=== PATIENT | male | born 1990 | race Caucasian/White ===

== ENCOUNTER 2022-02-22 11:45 | Emergency (ER) | payer SELFPAY ==
[2022-02-22 12:00] VITALS: BP 109/70; PULSE 100; RESP 18; TEMP 37.1; O2SAT 95; BMI 22.8
--- NOTE | 2022-02-22 12:41 | ED_ITS ---
HPI - Allergic Reaction General: Chief complaint: Allergic Reaction Stated complaint: ANXIETY ATTACH Time Seen by Provider: 02/22/22 12:41 History of Present Illness: HPI narrative: pt was outside burning trash and developed rash on hands, lip swelling, and ho arseness Known history of allergy to: unknown outside Review of Systems General: Reports: 10 or more systems reviewed and unremarkable except in HPI and below ENMT: Reports: swelling of lips/tongue Resp: Reports: dyspnea, wheezing and pain on inspiration Skin/Breast: Reports: rash, pruritus, erythema and skin tenderness Physical Exam Const: COMMON NORMALS: no acute distress, patient oriented x3, no limitations and alert GENERAL APPEARANCE: cooperative and comfortable ORIENTATION/CONSCIOUSNESS: Yes awake, Yes oriented to person, Yes oriented to place and Yes oriented to time HENMT: COMMON NORMALS: normocephalic, atraumatic, external ears normal, EAC's normal, TM's normal bilaterally and Normal external nose present HEAD & SCALP: normal to inspection, normocephalic and atraumatic FACE & SINUS: normal facial exam, sinuses nontender and face symmetric NOSE: Normal external nose present, Normal nares present and No nasal discharge present EXTERNAL EAR: Yes external ears normal EXTERNAL AUDITORY CANAL: EAC's normal TYMPANIC MEMBRANE: TM's normal bilaterally MOUTH: Normal oral and palatal mucosa present, lip normal and tongue normal THROAT: posterior oropharynx normal, tonsils normal and uvula midline Eye: COMMON NORMALS: Equal, round and reactive pupils present, EOMs intact bilaterally and conjunctivae normal GENERAL EYE: appearance normal, both eyes and all related structures and normal light reflex EYELID: eyelids normal CONJUNCTIVA: Yes conjunctivae normal PUPIL: Yes Equal, round and reactive pupils present EOM: Yes EOM abnormal DIRECT OPHTHALMOSCOPY: Yes normal light reflex Neck/C-Spine: COMMON NORMALS: full ROM, no lymphadenopathy, supple, no meningeal signs and no JVD GENERAL: Yes normal visual inspection THYROID: diffusely enlarged and solitary palpable nodule on the right CERVICAL SPINE: Yes cervical ROM normal and Yes normal cervical lordosis Lymph: LYMPHATIC: no lymphadenopathy noted Chest: COMMONS NORMALS: normal inspection of the chest and normal palpation of entire chest wall Resp: COMMON NORMALS: normal respiratory effort, No retractions and clear to auscultation bilaterally AUSCULTATION: clear to auscultation bilaterally Cardio: COMMON NORMALS: no JVD, regular rate, regular rhythm, S1 normal heart sound present, S2 normal heart sound present, No gallops present (Cardio), No clicks present (Cardio), No murmurs present (Cardio), No rub (Cardio) and Peripheral pulses 2+ throughout RATE: regular rate RHYTHM: regular rhythm HEART SOUNDS: S1 normal heart sound present and S2 normal heart sound present PERIPHERAL PULSES: Peripheral pulses 2+ throughout GI: COMMON NORMALS: Normal to inspection, nondistended, normoactive bowel sounds present, Soft to palpation, non-tender and no masses PALPATION: Yes Soft to palpation : COMMON NORMALS: Yes no CVA tenderness BLADDER/KIDNEY EXAM: Yes no CVA tenderness Back/Pelvis: COMMON NORMALS: no CVA tenderness, thoracic and lumbar spine normal to inspection, no thoracic nor lumbar tenderness and thoraco-lumbar ROM normal Extremity: COMMON NORMALS: normal to inspection, full ROM, capillary refill normal, no joint enlargement, no clubbing, cyanosis or edema, no calf tenderness and no pedal edema GENERAL: Yes normal exam except as noted Neuro: COMMON NORMALS: patient oriented x3, moves all extremities, no focal motor deficits, no sensory deficits noted and gait normal SENSORIUM/ORIENTATI ON: Yes alert, Yes oriented to person, Yes oriented to place and Yes oriented to time MENINGEAL SIGNS: Yes no meningeal signs Psych: COMMON NORMALS: mental status grossly normal, Normal thought process present, cooperative, normal affect, speech normal and activity/motor behavior normal SPEECH: Yes normal speech THOUGHT PROCESS: Normal thought process present Skin: RASHES: rashes noted (urticaria and petechia on hands) Course ED course: Pt has IV established in case of angioedema but no swelling of mouth or tongue noted upon assessment. He has reactions that included urticaria upon going outside and increasing over the past 2 years. Upon physical examination a palpable nodule is noted on the right side of his thyroid, it is painless and movable but requires further work up. Pt will need to follow up wit h PCP; pt will be likely DC'd after we note no acuity in his concerns. Vital Signs: Vital signs: Vital Signs Temperature 98.7 F 02/22/22 12:00 Pulse Rate 89 02/22/22 14:23 Respiratory Rate 16 02/22/22 14:22 Blood Pressure 109/70 02/22/22 12:00 Pulse Oximetry 98 02/22/22 14:22 MDM - Allergic Reaction Medical Decision Making Pt labs are not alarming today. He does have a mild increase to his WBC but that is likely due to the reaction itself. He needs to follow up with PCP for further work up and to evaluate his thyroid further due the the nodule finding. Lab Data : 02/22/22 13:53 02/22/22 13:53 Radiology Impressions Chest X-Ray 02/22/22 13:34 IMPRESSION: No acute findings. Laboratory Results WBC 15.5 10^3/uL (4.0-10.0) H 02/22/22 13:53 RBC 5.42 10^6/uL (4.1-5.3) H 02/22/22 13:53 Hgb 16.3 g/dL (11.7-16.6) 02/22/22 13:53 Hct 47.6 % (42.0-52.0) 02/22/22 13:53 MCV 87.8 fl (80-94) 02/22/22 13:53 MCH 30.1 pg (28.0-34.0) 02/22/22 13:53 MCHC 34.2 g/dL (30.0-36.0) 02/22/22 13:53 RDW 11.8 % (12.1-15.1) L 02/22/22 13:53 Plt Count 299 10^3/cmm (130-400) 02/22/22 13:53 MPV 12.0 fL (7.4-10.4) H 02/22/22 13:53 Neut % (Auto) 77.8 % 02/22/22 13:53 Lymph % (Auto) 13.1 % 02/22/22 13:53 Snyder % (Auto) 7.6 % 02/22/22 13:53 Eos % (Auto) 0.9 % 02/22/22 13:53 Baso % (Auto) 0.3 % 02/22/22 13:53 Neut # (Auto) 12.06 10^3/uL (1.8-7.7) H 02/22/22 13:53 Lymph # (Auto) 2.0 10^3/uL (0.8-4.8) 02/22/22 13:53 Snyder # (Auto) 1.2 10^3/uL (0.2-0.9) H 02/22/22 13:53 Eos # (Auto) 0.1 10^3/uL (0.0-0.8) 02/22/22 13:53 Baso # (Auto) 0.1 10^3/uL (0.0-0.1) 02/22/22 13:53 Nucleated RBC % (auto) 0 % 02/22/22 13:53 Nucleated RBCs # 0.0 /100WBC 02/22/22 13:53 ESR 2 mm/hr (0-10) 02/22/22 13:53 Sodium 135 mmol/L (136-145) L 02/22/22 13:53 Potassium 4.1 mmol/L (3.5-5.1) 02/22/22 13:53 Chloride 102 mmol/L (98-107) 02/22/22 13:53 Carbon Dioxide 23 mmol/L (22-29) 02/22/22 13:53 Anion Gap 14.1 (5-19) 02/22/22 13:53 BUN 10 mg/dL (6-20) 02/22/22 13:53 Creatinine 1.0 mg/dL (0.7-1.2) 02/22/22 13:53 GFR Calculation 87.2 mL/min (90-130) L 02/22/22 13:53 Glucose 96 mg/dL (65-115) 02/22/22 13:53 Calculated Osmolality 279 mOsm/kg (285-295) L 02/22/22 13:53 Calcium 9.5 mg/dL (8.5-10.5) 02/22/22 13:53 Total Bilirubin 0.5 mg/dL (0.15-1.2) 02/22/22 13:53 AST 14 U/L (0-40) 02/22/22 13:53 ALT 10 U/L (0-41) 02/22/22 13:53 Alkaline Phosphatase 108 IU/L (40-130) 02/22/22 13:53 Total Protein 7.5 g/dL (6.6-8.7) 02/22/22 13:53 Albumin 4.5 g/dL (3.5-5.2) 02/22/22 13:53 Globulin 3.0 g/dL (1.3-4.6) 02/22/22 13:53 TSH 1.53 uIU/mL (0.27-4.20) 02/22/22 13:53 Imaging Data CXR: Radiologist's impression: [address] [address] XRay Report Signed Patient: Tay Steele Unit #: [id number] : 1990 Age/Sex: 31 / M ADM Date: 02/22/22 Loc: ER Room/Bed: Attending Dr: Ordering Provider/Ordering MD: Lillie Celestin NP Date of Service: 02/22/22 Procedure(s): XR chest 1V portable [id number] Accession Number(s): [id number] Report Number: [id number] PROCEDURE INFORMATION: Exam: XR Chest Exam date and time: 02/22/2022 1:56 PM Age: 31 years old Clinical indication: Pain; Shortness of breath; Angina pectoris; Additional info: Cp/sob TECHNIQUE: Imaging protocol: XR of the chest. Views: 1 view. COMPARISON: No relevant prior studies available. FINDINGS: Lungs: Unremarkable. No consolidation. Pleural spaces: Unremarkable. No pleural effusion. No pneumothorax. Heart/Mediastinum: Unremarkable. No cardiomegaly. Bones/joints: Unremarkable. XR/XR chest 1V portable [id number] IMPRESSION: No acute findings. Dictated By: Kieran Moody DO Signed By: Kieran Moody DO Signed Date/Time: 02/22/22 1409 DD/ 1356 Discharge Plan Discharge Patient Disposition: Home Clinical Impression: Allergic reaction, Urticaria Condition: Stable Prescriptions: New methylprednisolone [Medrol (Braydon)] 4 mg tablets,dose pack See Rx Instructions .ROUTE .COMPLEX Qty: 21 0RF Rx Instructions: orally per package directions Discharge Orders: Discharge ED (Routine); Ordered 02/22/22 Ordered By: Lillie Celestin Discharge Diet: Usual diet Discharge Activity: Resume usual activity Patient Instructions: Opioid Safety Activity Restrictions/Additional Instructions: It is important to ensure your WBC is trending down, follow up with a pcp is necessary. You have a nodule on the parathyroid gland that also needs further investigation. Vit D 25,000 IUI x 2 weeks, decrease to maintenance of 5000 iui daily Zinc 50mg daily x 30 days Vit A +/ good multi vitamin daily Super Quercetin with Bromelain and Vit C Increase green tea to help expedite removal of free radicals/inflammation Coding Level of Care Code ED Motorcyles Final Inspector for Fish Fwd Exam Comprehensive
--- NOTE | 2022-02-22 13:34 | XRR_ITS ---
PROCEDURE INFORMATION: Exam: XR Chest Exam date and time: 02/22/2022 1:56 PM Age: 31 years old Clinical indication: Pain; Shortness of breath; Angina pectoris; Additional info: Cp/sob TECHNIQUE: Imaging protocol: XR of the chest. Views: 1 view. COMPARISON: No relevant prior studies available. FINDINGS: Lungs: Unremarkable. No consolidation. Pleural spaces: Unremarkable. No pleural effusion. No pneumothorax. Heart/Mediastinum: Unremarkable. No cardiomegaly. Bones/joints: Unremarkable. XR/XR chest 1V portable [id number] IMPRESSION: No acute findings.
[2022-02-22 14:05] LABS: Basophils # 0.1 10^3/uL (0.0-0.1); Basophils % 0.3 %; Eosinophils # 0.1 10^3/uL (0.0-0.8); Eosinophils % 0.9 %; Hematocrit 47.6 % (42.0-52.0); Hemoglobin 16.3 g/dL (11.7-16.6); Lymphocytes % 13.1 %; Mean Corpuscular HGB Conc 34.2 g/dL (30.0-36.0); Mean Corpuscular Hemoglobin 30.1 pg (28.0-34.0); Mean Corpuscular Volume 87.8 fl (80-94); Monocytes # 1.2 10^3/uL (0.2-0.9); Monocytes % 7.6 %; Neutrophils # 12.06 10^3/uL (1.8-7.7); Neutrophils % 77.8 %; Nucleated Red Blood Cells % 0 %; Platelet Count 299 10^3/cmm (130-400); Red Blood Count 5.42 10^6/uL (4.1-5.3); Red Cell Distribution Width 11.8 % (12.1-15.1); White Blood Count 15.5 10^3/uL (4.0-10.0)
[2022-02-22 14:18] LABS: Erythrocyte Sedimentation Rate 2 mm/hr (0-10)
[2022-02-22] MEDS: ipratropium-albuterol 3 mL Neb INHALATION (14:19)
[2022-02-22 14:22] VITALS: PULSE 88; RESP 16; O2SAT 98
[2022-02-22 14:23] VITALS: PULSE 89
[2022-02-22 14:41] LABS: Alanine Aminotransferase 10 U/L (0-41); Albumin Level 4.5 g/dL (3.5-5.2); Alkaline Phosphatase 108 IU/L (40-130); Anion Gap 14.1 (5-19); Aspartate Amino Transferase 14 U/L (0-40); Blood Urea Nitrogen 10 mg/dL (6-20); Calcium 9.5 mg/dL (8.5-10.5); Carbon Dioxide 23 mmol/L (22-29); Chloride 102 mmol/L (98-107); Creatinine Clr Calc Pharmacy 103.3314; Glomerular Filtration Rate 87.2 mL/min (90-130); Glucose 96 mg/dL (65-115); Osmolality Calculated 279 mOsm/kg (285-295); Potassium 4.1 mmol/L (3.5-5.1); Sodium 135 mmol/L (136-145); Thyroid Stimulating Hormone 1.53 uIU/mL (0.27-4.20); Total Bilirubin 0.5 mg/dL (0.15-1.2); Total Protein 7.5 g/dL (6.6-8.7)
[2022-02-23 08:57] LABS: T4 Total 7.7 mcg/dL (4.9-10.5)
[2022-02-26 19:52] LABS: TSH Receptor Binding Antibody 1.34 IU/L (< OR = 2.00)
== END 2022-02-22 15:41 | disposition home or self-care (01) ==
PROVIDERS: Emergency Provider Nurse Practitioner Family
DX: T78.40XA Allergy, unspecified, initial encounter (principal); X58.XXXA Exposure to other specified factors, initial encounter; L50.0 Allergic urticaria
CPT/HCPCS: 71045; 80053; 83516; 84436; 84443; 85025; 85651; 94640; 99283

== ENCOUNTER → 2023-01-30 09:00 | Outpatient (BNVA) | payer BC, SELFPAY | PROVIDERS: PCP Nurse Practitioner; Visit Provider Nurse Practitioner | DX: E55.9 Vitamin D deficiency, unspecified (principal); R00.2 Palpitations; F41.1 Generalized anxiety disorder; F41.0 Panic disorder [episodic paroxysmal anxiety]; J45.909 Unspecified asthma, uncomplicated; L03.90 Cellulitis, unspecified | CPT/HCPCS: 80053; 80061; 82306; 85025 ==

== ENCOUNTER → 2023-07-19 15:32 | Outpatient (BNVA) | payer BC, SELFPAY | PROVIDERS: PCP Nurse Practitioner; Visit Provider Nurse Practitioner | DX: E55.9 Vitamin D deficiency, unspecified (principal) | CPT/HCPCS: 80053; 82306 ==

== ENCOUNTER → 2025-05-16 12:19 | Outpatient (BNVA) | payer BC, SELFPAY | PROVIDERS: PCP Nurse Practitioner; Visit Provider Nurse Practitioner Psychiatric/Mental Health | DX: Z03.89 Encounter for observation for other suspected diseases and conditions ruled out (principal) | CPT/HCPCS: 80306 ==

== ENCOUNTER → 2025-09-25 08:23 | Outpatient (BNVA) | payer BC, SELFPAY | PROVIDERS: PCP Nurse Practitioner; Visit Provider Nurse Practitioner Psychiatric/Mental Health | DX: Z79.899 Other long term (current) drug therapy (principal) | CPT/HCPCS: 80061; 83036 ==